=== PATIENT | female | born 1960 | race Caucasian/White ===

== ENCOUNTER 2019-02-10 16:40 | Outpatient (CLI) | payer OTHER, BC | END 2019-02-10 16:41 | disposition critical access hospital (66) | LOC: EMS 16:40 | PROVIDERS: ATTEND Surgery | DX: R10.10 Upper abdominal pain, unspecified (principal); M25.561 Pain in right knee; V43.53XA Car driver injured in collision with pick-up truck in traffic accident, initial encounter; Y92.413 State road as the place of occurrence of the external cause | CPT/HCPCS: A0425; A0427 ==

== ENCOUNTER 2019-02-10 17:09 | Emergency (ER) | payer OTHER, BC ==
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
[2019-02-10] MEDS ORDERED: KETOROLAC 30 MG/ML VIAL IVP STA (17:19)
[2019-02-10 17:56] LABS: BASOPHILS % (AUTO) 0.5 %; EOSINOPHILS # (AUTO) 0.1 10^3/uL (0.0-0.7); EOSINOPHILS % (AUTO) 1.4 %; HGB - HEMOGLOBIN 13.2 g/dL (12.0-16.0); LYMPHOCYTES # (AUTO) 2.3 10^3/uL (1.5-3.5); LYMPHOCYTES % (AUTO) 29.6 %; MEAN CORPUSCULAR HEMOGLOBIN 29.9 pg (27.0-31.0); MEAN CORPUSCULAR HGB CONC 33.7 g/dL (32.0-36.0); MEAN CORPUSCULAR VOLUME 88.7 fL (81.0-99.0); MEAN PLATELET VOLUME 8.9 fL (7.9-10.8); MONOCYTES # (AUTO) 0.4 10^3/uL (0.0-1.0); MONOCYTES % (AUTO) 4.8 %; NEUTROPHILS % (AUTO) 63.2 %; PLT - PLATELET COUNT 308 10^3/uL (130-450); RED BLOOD COUNT 4.42 10^6/uL (4.20-5.40); RED CELL DISTRIBUTION WIDTH 12.4 % (12.0-15.0); WHITE BLOOD COUNT 7.9 x10^3/uL (4.8-10.8)
--- NOTE | 2019-02-10 17:56 | CT Report ---
Reason: Neck trauma, midline tenderness Procedure Date: 02/10/2019 Accession Number: [id number] / [id number] Procedure: CT - CERVICAL SPINE WO CPT Code: Final Report FULL RESULT: EXAM: CT CERVICAL SPINE WITHOUT CONTRAST DATE: 02/10/2019 05:36 PM. HISTORY: Neck trauma, midline tenderness. COMPARISONS: None. TECHNIQUE: Thin-section axial images were acquired of the cervical spine without contrast. Post-processing: Coronal and sagittal reformats. Other: None. In accordance with CT protocol optimization, one or more of the following dose reduction techniques were utilized for this exam: automated exposure control, adjustment of mA and/or KV based on patient size, or use of iterative reconstructive technique. FINDINGS: Alignment: No scoliosis or spondylolisthesis. Bones: No fracture or bone lesion. Interspace Levels/Facets: C1-C2: Unremarkable. C2-C3: Unremarkable. C3-C4: Unremarkable. C4-C5: Degenerative disk space narrowing and uncovertebral spurring. Mild bilateral foraminal narrowing. C5-C6: Mild degenerative disk space narrowing and uncovertebral spurring. mild bilateral foraminal narrowing. C6-C7: Degenerative disk space narrowing and uncovertebral spurring. Mild bilateral foraminal narrowing. C7-T1: Unremarkable. Other: The paravertebral and prevertebral soft tissues are unremarkable. Calcification right lateral thyroid lobe 3/64. The lung apices are clear. IMPRESSION: Degenerative change cervical spine without superimposed acute findings. RADIA
[2019-02-10 18:03] LABS: ALBUMIN 4.2 g/dL (3.2-5.5); ALBUMIN/GLOBULIN RATIO 1.4 (1.0-2.2); BILIRUBIN,TOTAL 0.7 mg/dL (0.2-1.0); CALCIUM 9.4 mg/dL (8.5-10.3); CREATININE 0.6 mg/dL (0.4-1.0); TOTAL PROTEIN 7.2 g/dL (6.7-8.2)
[2019-02-10 18:37] VITALS: BP 129/95
== END 2019-02-10 18:38 | disposition home or self-care (01) ==
LOC: EDUNIT# → ED 17:09
DX: S16.1XXA Strain of muscle, fascia and tendon at neck level, initial encounter (principal); S30.1XXA Contusion of abdominal wall, initial encounter; V43.52XA Car driver injured in collision with other type car in traffic accident, initial encounter; M50.321 Other cervical disc degeneration at C4-C5 level; M48.02 Spinal stenosis, cervical region
CPT/HCPCS: 36415; 72125; 80053; 83690; 85025; 96374; 99284

== ENCOUNTER 2020-09-29 13:20 | Outpatient (CLI) | payer BC | END 2020-09-29 13:21 | disposition critical access hospital (66) | LOC: EMS 13:20 | DX: R11.2 Nausea with vomiting, unspecified (principal) | CPT/HCPCS: A0425; A0429 ==

== ENCOUNTER 2020-09-29 13:51 | Emergency (ER) | payer BC ==
[2020-09-29] MEDS ORDERED: ONDANSETRON 4 MG/2 ML VIAL IVP STA (13:54)
[2020-09-29] MEDS ORDERED: SODIUM CHLORIDE 0.9% 1,000 ML IV STA ×2 (13:54→14:37)
[2020-09-29 14:09] LABS: BASOPHILS # (AUTO) 0.1 10^3/uL (0.0-0.1); BASOPHILS % (AUTO) 0.4 %; EOSINOPHILS # (AUTO) 0.1 10^3/uL (0.0-0.7); EOSINOPHILS % (AUTO) 0.8 %; HCT - HEMATOCRIT 47.3 % (37.0-47.0); HGB - HEMOGLOBIN 16.2 g/dL (12.0-16.0); LYMPHOCYTES # (AUTO) 2.2 10^3/uL (1.5-3.5); LYMPHOCYTES % (AUTO) 18.9 %; MEAN CORPUSCULAR HEMOGLOBIN 29.4 pg (27.0-31.0); MEAN CORPUSCULAR HGB CONC 34.2 g/dL (32.0-36.0); MEAN CORPUSCULAR VOLUME 85.8 fL (81.0-99.0); MEAN PLATELET VOLUME 9.1 fL (7.9-10.8); MONOCYTES # (AUTO) 0.4 10^3/uL (0.0-1.0); MONOCYTES % (AUTO) 3.1 %; NEUTROPHILS % (AUTO) 75.8 %; PLT - PLATELET COUNT 335 10^3/uL (130-450); RED BLOOD COUNT 5.51 10^6/uL (4.20-5.40); RED CELL DISTRIBUTION WIDTH 12.1 % (12.0-15.0); WHITE BLOOD COUNT 11.8 x10^3/uL (4.8-10.8)
[2020-09-29 14:20] LABS: ALBUMIN 5.1 g/dL (3.2-5.5); ALBUMIN/GLOBULIN RATIO 1.4 (1.0-2.2); BILIRUBIN,TOTAL 1.1 mg/dL (0.2-1.0); CREATININE 0.6 mg/dL (0.4-1.0); POTASSIUM 3.3 mmol/L (3.5-5.0); TOTAL PROTEIN 8.7 g/dL (6.7-8.2)
[2020-09-29] MEDS ORDERED: PROCHLORPERAZINE 10 MG/2 ML VIAL IVP STA (14:37)
--- NOTE | 2020-09-29 14:43 | ED Physician Documentation ---
History of Present Illness - Stated complaint Stated Complaint: VOMITING - Chief complaint Chief Complaint: Abd Pain - Additonal information Additional information: 60-year-old female presents the emergency department for evaluation of acute onset headache, nausea vomiting and diarrhea. She has been unable to keep anything down now for 12 hours and is constantly dry heaving. She reports that she has had similar though without the headache In the past with cannabis hyperemesis. She reports last smoking cannabis yesterday afternoon. She denies abdominal pain dysuria urgency or frequency. She has felt feverish and chilled. Review of Systems Constitutional: reports: Fever, Myalgias Eyes: reports: Reviewed and negative Ears: reports: Reviewed and negative Throat: reports: Reviewed and negative Cardiac: reports: Reviewed and negative Respiratory: reports: Reviewed and negative GI: reports: Nausea, Vomiting, Diarrhea. 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 - Present Medications Home Medications: Ambulatory Orders Medication Instructions Recorded Confirmed Meloxicam [Mobic] 15 mg PO DAILY PRN #20 tablet 02/10/19 09/29/20 Promethazine [Phenergan] 25 mg PO Q6H PRN #10 tablet 09/29/20 - Allergies Allergies/Adverse Reactions: Allergies Allergy/AdvReac Type Severity Reaction Status Date / Time Penicillins Allergy Intermediate Edema Verified 09/29/20 14:24 - Social History Does the pt smoke?: No Smoking Status: Never smoker Does the pt drink ETOH?: No Does the pt have substance abuse?: No - Immunizations Immunizations are current?: Yes PD ED PE EXPANDED - General General: Alert, In distress (Actively vomiting and dry heaving at the bedside.) - Neck Neck: Supple w/out meningeal sx. No: Adenopathy - Cardiac Cardiac: Regular Rate, Radial strong equal, Pedal strong equal, Cap refill < 2 sec. No: Murmur Present - Respiratory Respiratory: Clear to ausultation blayne. No: Distress, Labored - Abdomen Abdomen: Normal Bowel sounds. No: Tender to palpation - Derm Derm: Normal color, Warm and dry - Extremities Extremities: Normal. No: Deformity, Tenderness - Neuro Neuro: Alert and Oriented X 3, CNII-XII intact - GCS Eye Opening: Spontaneous Motor: Obeys Commands Verbal: Oriented Total: 15 - Psych Psych: Normal Results - Vitals Vitals: Vital Signs - 24 hr 09/29/20 14:24 Temperature 36.5 C Heart Rate 76 Respiratory 16 Rate Blood Pressure 130/96 H O2 Saturation 98 Oxygen O2 Source Room air - Labs Labs: Laboratory Tests 09/29/20 09/29/20 14:02 14:02 WBC 11.8 H RBC 5.51 H Hgb 16.2 H Hct 47.3 H MCV 85.8 MCH 29.4 MCHC 34.2 RDW 12.1 Plt Count 335 MPV 9.1 Neut # (Auto) 9.0 H Lymph # (Auto) 2.2 [place] # (Auto) 0.4 Eos # (Auto) 0.1 Baso # (Auto) 0.1 Absolute Nucleated RBC 0.00 Nucleated RBC % 0.0 Sodium 136 Potassium 3.3 L Chloride 99 L Carbon Dioxide 22 Anion Gap 15.0 H BUN 11 Creatinine 0.6 Estimated GFR (MDRD) 103 Glucose 172 H Calcium 10.0 Total Bilirubin 1.1 H AST 25 ALT 28 Alkaline Phosphatase 59 Total Protein 8.7 H Albumin 5.1 Globulin 3.6 Albumin/Globulin Ratio 1.4 Lipase 21 L PD MEDICAL DECISION MAKING - ED course Complexity details: reviewed results, re-evaluated patient, d/w patient, d/w family ED course: 60-year-old female presents the emergency department with uncontrolled nausea and vomiting as well as some mild diarrhea. Symptoms began about 3 AM. She arrived to the emergency department dry heaving. We did replete her IV fluid status with 2 L of crystalloid. She was noted to be modestly dehydrated with an elevated hemogram and crit. She is also modestly hypokalemic likely secondary to the vomiting. After 2 L of IV fluids some Compazine and Zofran patient was tolerating sips of clear liquids. I was unable to elicit any abdominal pain. Patient does use cannabis when she has anxiety attacks which seem to be this precipitating event. I discussed with the patient that she should abstain from further cannabis use in the future. She will be discharged with a prescription for promethazine which she has found most effective in the past for controlling her nausea. I have encouraged close follow-up with her primary care doctor. Emergent return precautions were discussed. Departure - Departure Disposition: 01 Home, Self Care Clinical Impression: Nausea & vomiting Qualifiers: Vomiting type: unspecified Vomiting Intractability: non-intractable Qualified Code(s): R11.2 - Nausea with vomiting, unspecified Condition: Stable Record reviewed to determine appropriate education?: Yes Follow-Up: JOCELYNN HERRING DO [Primary Care Provider] - Prescriptions: Promethazine [Phenergan] 25 mg PO Q6H PRN #10 tablet PRN Reason: Nausea / Vomiting Comments: Mihcaela you were seen in the emergency department today with uncontrolled nausea and vomiting. This did follow cannabis use yesterday. Your screening labs show that you are fairly dehydrated which is consistent with the vomiting. We did give you 2 L of IV fluids. We also gave you Compazine and Zofran which improved your nausea. I am prescribing promethazine for you on discharge. Though the cause of the vomiting is not entirely clear it is likely related to the cannabis use yesterday. I do advise that you abstain from cannabis use in the future. If you are using it to control your anxiety please discuss with your primary care doctor if there are other medications or treatments that may be effective. At any point you develop fevers, have uncontrolled vomiting, suddenly severe abdominal pain or feel that your symptoms are not well managed please return immediately to the ER.
[2020-09-29 18:07] VITALS: BP 130/88
== END 2020-09-29 17:10 | disposition home or self-care (01) ==
LOC: EDUNIT# → ED 13:51
DX: R11.2 Nausea with vomiting, unspecified (principal)
CPT/HCPCS: 36415; 80053; 83690; 85025; 96361; 96374; 96375; 99284

== ENCOUNTER 2022-06-06 08:00 | Outpatient (CLI) | payer MEDICAID ==
--- NOTE | 2022-06-06 17:21 | XRAY Report ---
PROCEDURE: Knee 3 View RT INDICATIONS: SPRAIN OF RIGHT KNEE TECHNIQUE: 3 views of the right knee(s) were acquired. COMPARISON: None. FINDINGS: Bones: Mild to moderate degenerative changes, particularly the medial compartment. Small patellar en thesopathy. Soft tissues: No significant effusion. IMPRESSION: No acute radiographic abnormality. Mild to moderate degenerative changes. If there is high concern fo r further derangement, consider MRI evaluation. Reviewed by: Chance Jones MD on 06/06/2022 5:19 PM PDT Approved by: Chance Jones MD on 06/06/2022 5:19 PM PDT Station ID: [id number]
== END 2022-06-06 23:59 | disposition home or self-care (01) ==
LOC: DI.S 08:00
PROVIDERS: ATTEND Emergency Medicine
DX: S83.411A Sprain of medial collateral ligament of right knee, initial encounter (principal); M17.11 Unilateral primary osteoarthritis, right knee

== ENCOUNTER 2022-12-24 14:11 | Outpatient (CLI) | payer MEDICAID ==
--- NOTE | 2022-12-24 15:30 | XRAY Report ---
PROCEDURE: Forearm RT INDICATIONS: OPEN BITE TO RIGHT FOREARM TECHNIQUE: 2 views of the forearm were acquired. COMPARISON: None. FINDINGS: Bones: No fractures or dislocations. No suspicious bony lesions. Soft tissues: No suspicious soft tissue calcifications or masses. No soft tissue gas or radiopaque f oreign bodies. IMPRESSION: No acute bony abnormality. Reviewed by: Chris Ferguson MD on 12/24/2022 3:29 PM PDT Approved by: Chris Ferguson MD on 12/24/2022 3:29 PM PDT Station ID: [id number]
== END 2022-12-24 23:59 | disposition home or self-care (01) ==
LOC: DI.S 14:11
PROVIDERS: ATTEND Physician Assistant Medical
DX: S51.851A Open bite of right forearm, initial encounter (principal)

== ENCOUNTER 2023-03-07 17:19 | Outpatient (CLI) | payer MEDICAID | END 2023-03-07 17:20 | disposition EMS.NT | LOC: EMS 17:19 | DX: S61.217A Laceration without foreign body of left little finger without damage to nail, initial encounter (principal); W54.0XXA Bitten by dog, initial encounter; Y93.K9 Activity, other involving animal care ==

== ENCOUNTER 2023-03-07 18:35 | Emergency (ER) | payer MEDICAID ==
[2023-03-07 18:51] VITALS: BP 112/71; O2SAT 97
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
[2023-03-07] MEDS: KETOROLAC 30 MG/ML VIAL IM STA (21:11)
== END 2023-03-07 21:55 | disposition home or self-care (01) ==
LOC: ED 18:35
DX: S41.052A Open bite of left shoulder, initial encounter (principal); S61.257A Open bite of left little finger without damage to nail, initial encounter; S51.852A Open bite of left forearm, initial encounter; S51.851A Open bite of right forearm, initial encounter; W54.0XXA Bitten by dog, initial encounter
CPT/HCPCS: 96372; 99283